=== PATIENT | male | born 1965 | race Hispanic/Latino ===

== ENCOUNTER 2019-01-04 12:11 | Emergency (ER) | payer MEDICAID, MEDICARE | END 2019-01-04 12:50 | disposition home or self-care (01) | LOC: EDH 12:11 | DX: M54.9 Dorsalgia, unspecified (principal); G89.29 Other chronic pain; Z72.0 Tobacco use | CPT/HCPCS: 99281 ==

== ENCOUNTER → 2019-05-23 | Outpatient (CLI) | payer MEDICARE ==
[~2019-05-23] MED LIST: REGADENOSON 0.4 MG/5 ML PF SYG IVP ONE; REGADENOSON 0.4 MG/5 ML PF SYG IVP SCH
== END | disposition home or self-care (01) ==
LOC: SHCH 08:49
PROVIDERS: ATTEND Internal Medicine Cardiovascular Disease
DX: I20.9 Angina pectoris, unspecified (principal); R06.09 Other forms of dyspnea
CPT/HCPCS: 78452; 93017; 96374; A9500 ×2; J2785

== ENCOUNTER 2020-01-08 17:19 | Emergency (ER) | payer MEDICARE ==
[2020-01-08] MEDS ORDERED: SODIUM CHLORIDE 0.9% 1000ML 1,000 ML IV ONE (17:20)
[2020-01-08 17:44] LABS: BASOPHILS % (AUTO) 0.8 % (0.0-5.0); EOSINOPHILS % (AUTO) 2.3 % (0.0-8.0); HEMATOCRIT 44.3 % (42-54); LYMPHOCYTES % (AUTO) 17.1 % (21.0-51.0); MEAN CORPUSCULAR HEMOGLOBIN 29.1 pg (27.0-33.0); MEAN CORPUSCULAR HGB CONC 32.7 g/dL (32.0-36.0); MEAN CORPUSCULAR VOLUME 88.8 fL (79-99); MONOCYTES % (AUTO) 7.5 % (3.0-13.0); NEUTROPHILS % (AUTO) 71.1 % (40.0-77.0); PLATELET COUNT (AUTO) 300 K/uL (130-400); RED BLOOD CELL COUNT(AUTO) 4.99 MIL/uL (4.50-6.20); RED CELL DISTRIBUTION WIDTH 14.9 % (11.0-15.5); WHITE BLOOD COUNT (AUTO) 9.6 K/uL (4.8-10.8)
[2020-01-08 18:00] LABS: LACTATE DEHYDROGENASE 250 U/L (81-234)
[2020-01-08 18:01] LABS: CREATININE 0.9 mg/dL (0.5-1.5); POTASSIUM 3.3 mmol/L (3.5-5.1)
[2020-01-08 18:06] LABS: ALBUMIN 3.5 g/dL (3.5-5.0); BILIRUBIN,TOTAL 0.3 mg/dL (0.2-1.0); TOTAL PROTEIN, SERUM 6.8 g/dL (6.0-8.3)
[2020-01-08 18:08] LABS: B-TYPE NATRIURETIC PEPTIDE 5 pg/mL (0-100)
[2020-01-08] MEDS ORDERED: POTASSIUM BICARB/CIT AC 25 MEQ TABLET.EFF ONE (18:28)
[2020-01-08 18:37] LABS: FERRITIN 114 ng/mL (30-400)
[2020-01-08 23:38] LABS: AMPHET/METH SCREEN,URINE NEGATIVE (NEGATIVE); BARBITURATE SCREEN, URINE NEGATIVE (NEGATIVE); BENZODIAZEPINES SCREEN,URINE POSITIVE (NEGATIVE); CANNABINOID SCREEN,URINE NEGATIVE (NEGATIVE); COCAINE SCREEN,URINE NEGATIVE (NEGATIVE); OPIATE SCREEN,URINE NEGATIVE (NEGATIVE); PHENCYCLIDINE SCREEN,URINE NEGATIVE (NEGATIVE)
== END 2020-01-08 21:28 | disposition left against medical advice (07) ==
LOC: EDH 17:19
DX: R05 Cough (principal); Z20.828 Contact with and (suspected) exposure to other viral communicable diseases; R41.82 Altered mental status, unspecified; R50.9 Fever, unspecified; R06.02 Shortness of breath; M54.9 Dorsalgia, unspecified; Z98.890 Other specified postprocedural states
CPT/HCPCS: 36415; 71045; 80053; 80305; 82550; 82728; 83605; 83615; 83880; 84145; 84484; 85025; 85378; 86140; 87633; 87635; 93005; 96360; 96361; 99285; G0480; J7030

== ENCOUNTER 2025-08-03 17:42 | Emergency (ER) | payer MEDICARE, OTHER ==
[~2025-08-03] VITALS: Ht 165.1 cm; Wt 79.4 kg
--- NOTE | 2025-08-03 18:04 | ERN ---
ED Note History of Present Illness Stated Complaint: FALL Chief Complaint: Mechanical Fall Time Seen by MD: 17:46 Time Seen by Midlevel: 17:46 Dictation: The patient is a 60-year-old male with a history of back surgery who presents to the emergency department with complaints of left wrist pain after an accidental fall prior to arrival. Patient reports he was trying to get him to his electric scooter when he got scared by his cat causing him to lose his stepping. Patient reports he was falling to the right side and put his left arm to break the fall. Patient reports he thinks he hit his head but denies any LOC denies any vomit ing denies any dizziness. Denies any use of blood thinners. Patient denies any back pain, chest pain, abdominal pain or any other extremity injury. Allergies: Coded Allergies: No Known Allergies (Unverified Allergy, Unknown, 12/02/16) No Known Drug Allergies (Unverified Allergy, Unknown, 01/08/20) Home Meds Active Scripts Meloxicam (Meloxicam) 15 Mg Tablet, 1 TAB PO DAILY for 10 Days, #10 TAB 0 Refills Prov:YAHAIRA RITCHIE [employer] 08/03/25 Past Medical History Past Medical History: Anxiety Surgical History: None RN Note Reviewed/Agreed w/PFSH: Yes Review of System Dictation Constitutional: Negative for fever,chills, and weight loss Eyes: Negative for injury, pain,redness, and discharge ENT: Negative for injury,pain or swelling Cardiovascular: Negative for chest pain, palpitations, and edema Respiratory: Negative for shortness of breath, cough, and wheezing, Abdomen/GI: Negative for abdominal pain, nausea, vomiting, diarrhea, and constipation Back: Negative for injury and pain : Negative for injury, bleeding and discharge MS/Extremity: Positive for left wrist injury Skin: Negative for rash, and discoloration Neuro: Negative for headache, weakness, numbness, tingling, and seizure Psych: Negative for suicide ideation, homicidal ideation, and hallucinations Initial Vital Sign VS Vital Signs Date Time Temp Pulse Resp B/P (MAP) Pulse Ox O2 Delivery O2 Flow Rate FiO2 08/03/25 17:45 98.2 91 18 141/88 97 08/03/25 19:01 Room Air* 0 21 Physical Exam Dictation Vital Signs reviewed General Appearance: Alert, oriented x 3, no acute distress, well developed, nourished. Head and Face: non-traumatic. Eyes: PERRL, pink conjunctivas, eyelid no trauma, anterior chamber with arcus senilis. Ears: Pinnas intact and no signs of trauma or erythema ear canals clear and no discharge TM no erythema Nose: No discharge, no bleeding. Oropharynx: Mouth normal, tongue pink. pharynx clear,no erythema, tonsils no exudates, no abscesses noted, mucous membrane moist Neck: Supple, non-tender, no thyromegaly, no masses, no JVD, no bruits Breast:Deferred Chest:No tenderness, no crepitus, no paradoxical movement, no retractions Lungs:Clear, well-ventilated, symmetric, no rales, no wheezing, no rhonchi, no stridor, good breath sounds bilaterally Heart: Regular rate, regular rhythm, no murmur, no gallops Vascular: no peripheral edema, radial pulses 3+ bilaterally Abdomen: Soft, positive bowel sounds, nondistended, no guarding, nontender, no rebound, no masses no hepatomegaly, no splenomegaly, no Cervantes's sign, no hernias. Rectal: Deferred Genital: Deferred Neurological: Normal speech, motor function intact, sensory function intact Musculoskeletal: Neck nontender, full range of motion, back nontender, full range of motion, Extremities: nontender, full range of motion , mild swelling and tenderness to left wrist, no open wounds, cap refill less than 2 seconds Skin: Color pink, dry, no turgor, no rash, no lacerations, no abrasions, no contusions. Lymphatic: Deferred Results (Laboratory/Radiology) Laboratory/Radiology SERVICE 1800 REASON: injury, fall ORDERING PHYSICIAN: YAHAIRA RITCHIE [employer] PROCEDURE: WRST 3V LT - WRIST COMP 3+VWS LT ADDENDUM REPORT ADDENDUM: EXAM: CR left Wrist, 3 View. CLINICAL HISTORY: injury, fall COMPARISON: None provided. FINDINGS: Mildly displaced, comminuted intra-articular fracture of the distal radius. Mildly displaced fracture of the ulnar styloid process. Joint spaces remain anatomically aligned. IMPRESSION: 1. Mildly displaced, comminuted intra-articular fracture of the distal radius and mildly displaced fracture of the ulnar styloid process. /[place] EXAM: CR right Wrist, 3 View. CLINICAL HISTORY: injury, fall COMPARISON: None provided. FINDINGS: Mildly displaced, comminuted intra-articular fracture of the distal radius. Mildly displaced fracture of the ulnar styloid process. IMPRESSION: 1. Mildly displaced, comminuted intra-articular fracture of the distal radius and mildly displaced fracture of the ulnar styloid process. /[place] Labs Reviewed?: Yes ED Course ED Course Orders Procedure Category Date Status Time Wrist Comp 3+Vws Lt RAD 08/03/25 Resulted 18:00 Ketorolac PHA 08/03/25 Complete Tromethamine 30mg/Ml 18:00 *Nursing CPOE 08/03/25 Transmitted Communication: 19:12 Hydrocodone/Apap PHA 08/03/25 In Process 5/325 ([place] 5/325mg) 20:00 Current Medications Medications (Trade) Dose Ordered Sig/Will Route PRN Reason Start Time Stop Time Status Last Admin Dose Admin Acetaminophen/ Hydrocodone Bitart (NORco 5/325MG) 1 tab ONCE ONCE PO 08/03/25 20:00 08/03/25 20:01 08/03/25 19:47 Ketorolac Tromethamine (toRADol) 30 mg ONCE ONCE IM 08/03/25 18:00 08/03/25 18:03 DC 08/03/25 18:16 Vital Signs Date Time Temp Pulse Resp B/P (MAP) Pulse Ox O2 Delivery O2 Flow Rate FiO2 08/03/25 19:01 98.2 88 18 137/78 97 Room Air* 0 21 08/03/25 17:45 98.2 91 18 141/88 97 Medical Decision Making MDM The patient is a 60-year-old male with a history of back surgery who presents to the emergency department with complaints of left wrist pain after an accidental fall prior to arrival. Patient reports he was trying to get him to his electric scooter when he got scared by his cat causing him to lose his stepping. Patient reports he was falling to the right side and put his left arm to break the fall. Patient reports he thinks he hit his head but denies any LOC denies any vomiting denies any dizziness. Denies any use of blood thinners. Patient denies any back pain, chest pain, abdominal pain or any other extremity injury. Patient comes in to the emergency department with complaints of left wrist pain after a fall. Patient reported some back discomfort but reports that it is chronic in at this time does not want any imaging done. Patient reports he thought he hit his head but denies any LOC, there is no obvious hematomas or wounds to scalp, patient with no raccoon eyes, no talbot sign., patient with no vomiting no use of blood thinners. [place] CT head for trauma was unnecessary for CT. Patient neurological intact. X-ray did show a wrist fracture. Case discussed with Dr. Walker who states patient can follow up in the clinic in the morning. Patient neurovascularly intact. Placed on a sugar tong. Patient will be discharged to follow up with ortho in the morning. Differential diagnosis: Ankle sprain, ankle fracture, ankle sprain Need for hospitalization: Patient does not meet criteria for hospitalization. There are no social concerns with this patient. DX & DISP Disposition: Discharge Departure Impression: Primary Impression: Left wrist fracture Additional Impression: Closed fracture distal radius and ulna Condition: Stable Scripts Meloxicam (Meloxicam) 15 Mg Tablet 1 TAB PO DAILY for 10 Days, #10 TAB 0 Refills Prov: YAHAIRA RITCHIE [employer]ER 08/03/25 Additional Instructions: Your x-ray showed a wrist fracture. Continue with your splint until advised by the orthopedic. Please follow up with ortho tomorrow morning. Call the morning to make an appointment. With your PCP in 1-2 days. If you develop discoloration, numbness or severe pain please return to ER. FOLLOW-UP WITH PRIMARY CARE PROVIDER IN 1 TO 2 DAYS. TAKE MEDICATIONS DIRECTED HERE IN THE EMERGENCY ROOM. OKAY TO CONTINUE HOME MEDICATIONS UNLESS OTHERWISE DISCUSSED DURING YOUR VISIT IN THE EMERGENCY ROOM TODAY. RETURN TO YOUR NEAREST EMERGENCY ROOM IF SYMPTOMS WORSEN OR IF THERE IS NO IMPROVEMENT. CALL 911 IF YOU NEED IMMEDIATE ASSISTANCE. TAKE TYLENOL [id number] NEEDED AND IF NO CONTRAINDICATIONS ARE PRESENT. INCREASE ORAL HYDRATION. A WOUND CULTURE OR URINE CULTURE WAS ORDERED HERE IN THE EMERGENCY ROOM DEPARTMENT PLEASE FOLLOW-UP WITH PRIMARY CARE PROVIDER AND ADVISE THEM TO GET REPEAT PORTS FROM OUR FACILITY. IF YOU HAD ANY MARK WRAP/SPLINTS THAT WERE APPLIED HERE, PLEASE DO NOT REMOVE THEM UNTIL YOU SEE YOUR PRIMARY CARE OR SPECIALTY. Referrals: MOHAMUD LANE MD (PCP) TIA WALKER MD Time of Disposition: 19:42 I have reviewed the case, and I agree with, Diagnosis and Plan YAHAIRA RITCHIE [facility] Aug 03, 2025 18:04
--- NOTE | 2025-08-03 18:59 | HMCIMG ---
EXAM: CR right Wrist, 3 View. CLINICAL HISTORY: injury, fall COMPARISON: None provided. FINDINGS: Mildly displaced, comminuted intra-articular fracture of the distal radius. Mildly displaced fracture of the ulnar styloid process. IMPRESSION: 1. Mildly displaced, comminuted intra-articular fracture of the distal radius and mildly displaced fracture of the ulnar styloid process. /[place]
[2025-08-03 19:01] VITALS: BP 137/78; PULSE 88; RESP 18; TEMP 98.2; O2SAT 97
--- NOTE | 2025-08-03 19:31 | NUR ---
SUGAR TONG SPLINT APPLIED TO LT ARM, PT TOLERATED WELL
--- NOTE | 2025-08-03 19:43 | NUR ---
SLING APPLIED TO SPLINT, PT TOLERATED WELL
[2025-08-03] MEDS ORDERED: MELO-108 PO (19:44)
[2025-08-03] MEDS: HYDROcodone/APAP 5/325 1 TAB TABLET PO ONE (19:47)
== END 2025-08-03 19:50 | disposition home or self-care (01) ==
LOC: EDH 17:42
DX: S52.572A Other intraarticular fracture of lower end of left radius, initial encounter for closed fracture (principal); S52.612A Displaced fracture of left ulna styloid process, initial encounter for closed fracture; Z79.1 Long term (current) use of non-steroidal anti-inflammatories (NSAID); W18.39XA Other fall on same level, initial encounter; Y93.89 Activity, other specified; Y92.89 Other specified places as the place of occurrence of the external cause; Y99.8 Other external cause status
CPT/HCPCS: 99283; 73110; 29125; 96372; J1885